=== PATIENT | female | born 1955 | race Caucasian/White ===

== ENCOUNTER 2016-10-23 07:34 | Day surgery (SDC) | payer BC ==
[2016-10-21 13:41] VITALS: BMI 24.2
[2016-10-23] MEDS ORDERED: PROPOFOL 20 ML ONE ×2 (07:38)
[2016-10-23] MEDS ORDERED: LIDOCAINE HCL/PF 2% SDV 5ML VIAL ONE (07:38)
[2016-10-23 16:27] VITALS: TEMP 98.1
[2016-10-23 16:30] VITALS: BP 134/77; PULSE 78
--- NOTE | 2016-10-30 11:19 | PATH ---
Surgical Pathology Report Patient Name: NAZARIO MURCIA [facility]. Rec. #: [id number] /Age/Gender: 1955 (Age: 61) / F Account: [id number] Location: [facility]-ENDOSCOPY Taken: 10/23/2016 Received: 10/23/2016 Reported: 10/25/2016 Physicians: Louie Cohn M.D. Specimen(s) Received BX HEPATIC FLEXURE Clinical History Rule out colon cancer Polyp Final Diagnosis COLON, HEPATIC FLEXURE, POLYP, BIOPSY/POLYPECTOMY: TUBULAR ADENOMA. Electronically Signed Aj Wilkerson M.D. Gross Description Received in formalin, labeled "hepatic flexure" is a crawford, irregular portion of soft tissue measuring 0.1 cm in greatest dimension. The specimen is submitted in toto in one cassette. 10/23/201610/23/2016
== END 2016-10-23 10:15 | disposition home or self-care (01) ==
LOC: FASU-ENDO 07:34
PROVIDERS: ATTEND Internal Medicine Gastroenterology
PROC: 0DBL8ZX Excision of Transverse Colon, Via Natural or Artificial Opening Endoscopic, Diagnostic (ICD-10-PCS; principal; 2016-10-23 08:52)
DX: Z12.11 Encounter for screening for malignant neoplasm of colon (principal); D12.3 Benign neoplasm of transverse colon
CPT/HCPCS: 88305-TC

== ENCOUNTER 2021-11-19 07:41 | Day surgery (SDC) | payer OTHER, MEDICARE ==
[2021-11-16 11:03] VITALS: BMI 20.7
[2021-11-19 10:26] VITALS: TEMP 97.8
[2021-11-19 10:29] VITALS: BP 120/86; PULSE 63
== END 2021-11-19 10:40 | disposition home or self-care (01) ==
LOC: FASU-ENDO 07:41
PROVIDERS: ATTEND Internal Medicine Gastroenterology
PROC: 0DJD8ZZ Inspection of Lower Intestinal Tract, Via Natural or Artificial Opening Endoscopic (ICD-10-PCS; principal; 2021-11-19 09:32)
DX: Z12.11 Encounter for screening for malignant neoplasm of colon (principal); Z86.010 Personal history of colon polyps